=== PATIENT | male | born 1945 | race Caucasian/White ===

== ENCOUNTER 2020-04-22 09:06 | Outpatient (REF) | payer SELFPAY | END 2020-04-22 09:07 | disposition home or self-care (01) | LOC: HO.HAP 09:06 | PROVIDERS: Visit Provider Family Medicine | DX: Z13.89 Encounter for screening for other disorder (principal) ==

== ENCOUNTER 2020-05-02 08:26 | Outpatient (REF) | payer SELFPAY | END 2020-05-02 08:27 | disposition home or self-care (01) | LOC: HO.HAP 08:26 | PROVIDERS: Visit Provider Family Medicine | DX: Z13.89 Encounter for screening for other disorder (principal) ==

== ENCOUNTER 2021-05-13 08:47 | Outpatient (REF) | payer SELFPAY ==
--- NOTE | 2021-05-13 09:08 | MHC.AU.P13 ---
Hearing Instrument Problem-Right side Date of Visit: 05/13/21 Right Ear: Tissue Technician: Phonak Model: Audeo M70-R Serial Number: [id number] Repair Warranty: 11/11/2021 Battery Size: Rechargeable Dairy Equipment Installer: 2P Type of Dome: Medium vented dome Type of Wax Guard: Cerushield Dispensed By: [employer] Date of Fittin08/30/2018 Left Ear: Tissue Technician: Phonak Model: Audeo M70-R Serial Number: [id number] Repair Warranty: 11/11/2021 Battery Size: Rechargeable Dairy Equipment Installer: Size 2 P Type of Wax Guard: Cerushield Dispensed By: [employer] Date of Fittin08/30/2018 Follow-Up Summary: Patient brought in right hearing aid - not working. Cleaned, changed wax guard and medium vented dome - now amplifying clearly. Recommendations: Recommendations: Hearing instrument follow-up or maintenance as needed. Diagnosis Code(s): Primary Diagnosis: H90.3 Bilateral Sensorineural Hearing Loss Signature: Provider: WAYLON Freire-HIS
== END 2021-05-13 08:48 | disposition home or self-care (01) ==
LOC: HO.HAP 08:47
PROVIDERS: Visit Provider Family Medicine
DX: Z01.118 Encounter for examination of ears and hearing with other abnormal findings (principal); H90.3 Sensorineural hearing loss, bilateral
CPT/HCPCS: V5267

== ENCOUNTER 2022-03-17 13:44 | Outpatient (REF) | payer SELFPAY ==
--- NOTE | 2022-03-17 15:41 | MHC.AU.HFU ---
Hearing Instrument Follow-Up- Binaural Date of Visit: 03/17/22 Right Ear: Nolvia Castroo M70-R SN: [id number] Color: Sand Beige Repair Warranty: 11/11/2021 Loss and Damage Warranty: 11/11/2021 Battery Size: Rechargeable Cable Armorer: 2P Type of Mold: Medium vented dome Type of Wax Guard: Cerushield Dispensed By: [facility] Date of Fittin08/30/2018 Left Ear: Nolvia Castroo M70-R SN: [id number] Color: Sand Beige Repair Warranty: 11/11/2021 Loss and Damage Warranty: 11/11/2021 Battery Size: Rechargeable Cable Armorer: 2P Type of Mold: Medium vented dome Type of Wax Guard: Cerushield Dispensed By: [facility] Date of Fittin08/30/2018 Follow-Up Summary: Heriberto reported that his right hearing aid is not working. Cable Armorer plugged with wax and CeruShield out of position. Battery power also depleted. Cleaned both hearing aids. Vacuumed microphones and replaced domes and wax guards. Charged right hearing aid for about 15 minutes. A listening check demonstrated that both hearing aids are in good working order. Heriberto reported that he has no trouble changing the left wax guard but has difficulty removing the right wax guard. Could possibly be due to end of care asst being misshapen from multiple attempts at changing. He also reported a possible charging issue with the right hearing aid. Discussed option to send for [id number] repair and/or purchase new care asst. Heriberto reported he will try, as is, for now and will contact the clinic if problems persist. Recommendations: Hearing instrument maintenance in 6 months, or sooner if needed. Please contact our clinic with any questions or concerns. Patient will call if problems persist. Diagnosis Code(s): Primary Diagnosis: H90.3 Bilateral Sensorineural Hearing Loss Signature: Provider: Bj Alatorre, [facility]
== END 2022-03-17 13:45 | disposition home or self-care (01) ==
LOC: HO.HAP 13:44
PROVIDERS: Visit Provider Family Medicine
DX: Z46.1 Encounter for fitting and adjustment of hearing aid (principal)
CPT/HCPCS: 92593

== ENCOUNTER 2022-10-22 08:46 | Outpatient (REF) | payer MEDICARE, SELFPAY | END 2022-10-22 08:47 | disposition home or self-care (01) | LOC: HO.SH 08:46 | PROVIDERS: Visit Provider Family Medicine | DX: Z01.118 Encounter for examination of ears and hearing with other abnormal findings (principal); H90.3 Sensorineural hearing loss, bilateral | CPT/HCPCS: 92557 ==

== ENCOUNTER 2022-10-22 09:51 | Outpatient (REF) | payer SELFPAY ==
--- NOTE | 2022-10-22 13:14 | MHC.AU.MED ---
Medical Clearance for Hearing Instrumentation Date: 10/22/22 Patient Name: Heriberto Blank Date of : 1945 Primary Care Provider: Gemma Yo MD We have seen your patient on 10/22/22 and have determined that they are a candidate for amplification (See accompanying report). Specifically, they would benefit from: Hearing aid use in both ears There is a statute that addresses Medical Evaluation Requirements prior to fitting a patient with a hearing aid. According to [place] statute 265 CMR:6.03(1), (a) General. Except as provided in 265 CMR 6.03(1)(b), a plating and point assembly supervisor shall not sell a hearing aid unless the prospective user has presented to the plating and point assembly supervisor a written statement signed by a licensed physician that states that the patient's hearing loss has been medically evaluated and the patient may be considered a candidate for a hearing aid. The medical evaluation must have taken place within the preceding six months. Please note: Due to the [place] Statute referenced above, we cannot accept a signature other than that of a licensed physician. NURSING RESIDENT and PA signatures cannot be accepted. I am in agreement with the above recommendation. There is no medical contraindication for hearing instrumentation. Physician Signature Date Physician Name (Printed)
--- NOTE | 2022-10-22 13:29 | MHC.AU.HA1 ---
Hearing Aid Evaluation Date of Visit: 10/22/22 Historical Information:Description of Hearing: Moderate sloping to profound sensorineural hearing loss, bilaterally Current personal amplification information: Phonak Audeo M70-R fit in August 2018 Summary: Heriberto returned for an updated hearing test (see audio). He did not bring his current hearing aids to this appointment as they reportedly about two weeks ago. Discussed option to inspect and possibly repair hearing aids; however, Heriberto is interested in pursuing new hearing aids instead. He reportedly likes the style of his current hearing aids and would like to maintain bluetooth capabilities and rechargeability. However, his biggest concern is changing the wax guard with the CeruShield. He was never able to successfully use the disk for changing the wax guard. Discussed options including changing style of hearing aids, opting for a different can runner, or adding a c-shell ear mold with a CeruStop. Ja'sony CeruStop vs CeruShield. Recommended c-shell due to severity of loss anyways. Heriberto opted to stay with Phonak Audeo style hearing aids with a c-shell ear mold. Impressions were taken, bilaterally, without incident - Sent to [facility]. Hearing Aid Prescription: Based on the individual?s shared listening needs, communication environments, dexterity, desire for connectivity, and personal preferences, the following prescription for amplification has been made: Right ear: Make, Model, Color: Phonak Audeo L70-RT Color: Sand Beige Battery Size: Rechargeable Purse Seiner/Slim Tube: 2P Type of Earmold/Dome/CShell/SlimTip: c-shell Left ear: Left ear prescription to be same as Right Hearing Aid above: Make, Model, Color: Phonak Audeo L70-RT Color: Sand Beige Battery Size: Rechargeable Purse Seiner/Slim Tube: 2P Type of Earmold/Dome/CShell/SlimTip: c-shell Plan of Care: Patient wishes to purchase hearing aids as prescribed Action Taken/Action Needed: Earmold Impressions Taken. Medical Clearance to be requested from PCP/ENT. Hearing Instrument Fitting to be scheduled when materials arrive Primary Diagnosis: H90.3 Bilateral Sensorineural Hearing Loss Signature: Provider: Bj Alatorre, [facility]
== END 2022-10-22 09:52 | disposition home or self-care (01) ==
LOC: HO.HAP 09:51
PROVIDERS: Visit Provider Family Medicine
DX: Z46.1 Encounter for fitting and adjustment of hearing aid (principal); H90.3 Sensorineural hearing loss, bilateral
CPT/HCPCS: 92590

== ENCOUNTER 2022-11-18 12:03 | Outpatient (REF) | payer SELFPAY ==
--- NOTE | 2022-11-18 12:37 | MHC.AU.HA2 ---
Hearing Instrument Fitting- Adult- Binaural Date of Visit: 11/18/22 Hearing Instruments Dispensed: Right Ear: Make, Model, Color, Serial Number: Nolvia Ferrer L70-RT SN: [id number] Color: Sand Beige Meat Wrapper Repair Warranty: 01/26/2026 Meat Wrapper Loss and Damage Warranty: 01/26/2026 [facility] Service Plan: 11/18/2025 Battery Size: Rechargeable Crucible Packer/Slim Tube: 2P Earmold/Dome/CShell/SlimTip: C-shell SN: [id number] Des: 02/07/2023 Type of Wax Guard: Cerustop Left Ear: Salty, Model, Color, Serial Number: Nolvia Ferrer L70-RT SN: [id number] Color: Sand Beige Meat Wrapper Repair Warranty: 01/26/2026 Meat Wrapper Loss and Damage Warranty: 01/26/2026 [facility] Service Plan: 11/18/2025 Battery Size: Rechargeable Crucible Packer/Slim Tube: 2P Earmold/Dome/CShell/SlimTip: C-Shell SN: [id number] Des: 01/28/2023 Type of Wax Guard: Cerustop Accessories/Assistive Technology: Sql Server D[employer] SN: [id number] Summary of Fitting: Performed feedback advertising assistant manager and real ear measurements. Decreased to 90% gain level at Heriberto's request due to overall loudness. Otherwise, he reported sound quality comfortable and clear. C-shells comfortable with no feedback in office. Advised of warranty on ear molds if issues arise with fit and/or comfort. Reviewed care and use including rechargeability, cleaning ear molds, changing wax guards, volume control use, and manually turning on/off. Practiced insertion and removal. Paired to cell phone and confirmed successful connection in office via phone call. Heriberto reported the streaming of the phone call was a bit weak even after adjusting the volume on his phone and on his hearing aids. Will discuss further at follow up after having time to trial it more. Briefly discussed the Profista topher; however, Heriberto did not download it at this time. Heriberto reportedly has a TV Connector that he used with his old hearing aids. Called [employer] and confirmed it is the same TV Connector for his new hearing aids. Heriberto reported that he can pair the hearing aids to the TV Connector at home. Recommendations: A hearing instrument follow-up was scheduled. Diagnosis Code(s): Primary Diagnosis: H90.3 Bilateral Sensorineural Hearing Loss Signature: Provider: Bj Alatorre, [facility]
== END 2022-11-18 12:04 | disposition home or self-care (01) ==
LOC: HO.HAP 12:03
PROVIDERS: Visit Provider Family Medicine
DX: Z46.1 Encounter for fitting and adjustment of hearing aid (principal); H90.3 Sensorineural hearing loss, bilateral
CPT/HCPCS: 92700; V5261; V5264; V5299

== ENCOUNTER 2022-12-02 13:45 | Outpatient (REF) | payer SELFPAY ==
--- NOTE | 2022-12-03 09:11 | MHC.AU.HA3 ---
Hearing Instrument Follow-Up- Binaural Date of Visit: 12/02/22 Right Ear: Salty, Model, Color, Serial Number: Nolvia Ferrer L70-RT SN: [id number] Color: Sand Beige Needle Punch Machine Operator Helper Repair Warranty: 01/26/2026 Needle Punch Machine Operator Helper Loss and Damage Warranty: 01/26/2026 Service Plan: 11/18/2025 Battery Size: Rechargeable Production Editor/Slim Tube: 2P Earmold/Dome/CShell/SlimTip:C-shell SN: [id number] Des: 02/07/2023 Type of Wax Guard: Cerustop Dispensed By: Date of Fittin11/18/2022 Left Ear: Salty, Model, Color, Serial Number: Nolvia Ferrer L70-RT SN: [id number] Color: Sand Beige Needle Punch Machine Operator Helper Repair Warranty: 01/26/2026 Needle Punch Machine Operator Helper Loss and Damage Warranty: 01/26/2026 Service Plan: 11/18/2025 Battery Size: Rechargeable Production Editor/Slim Tube: 2P Earmold/Dome/CShell/SlimTip: C-Shell SN: [id number] Des: 01/28/2023 Type of Wax Guard: Cerustop Dispensed By: Date of Fittin11/18/2022 Follow-Up Summary: Heriberto reported that overall, he has noticed a significant benefit with his new hearing aids compared to his old hearing aids. He can hear the alarm system in his home as well as birds chirping outside - all sounds he never heard with his old hearing aids. However, Heriberto reported that every morning he turns down the volume on his hearing aids at least 5 clicks due to perceived loudness. Even with the decrease in volume, he is still noticing an improvement in his hearing. Decreased overall volume in [employer] software so Heriberto does not need to adjust the volume every morning. More comfortable sound quality in office but also discussed the balance between comfort and audibility. Heriberto reported that he has disconnected the bluetooth capabilities at this time, as the text notifications were too loud and it was more hassle than it was worth. He inquired about the Pixia topher for remote control use - discussed the topher and provided instructions to obtaining the topher user guide online. Heriberto may download the topher himself if he chooses to try it out. Otherwise, Heriberto's biggest concern was his right ear mold. It reportedly slips out of his ear with jaw movement or any type of activity (e.g., pickleball). He is nervous he may loose his hearing aid due to these retention issues. No concerns with the left ear mold. Impression taken of the right ear without incident to send to [facility] for remake. Recommendations: Patient will be contacted when materials have arrived. Diagnosis Code(s): Primary Diagnosis: H90.3 Bilateral Sensorineural Hearing Loss Signature: Provider: Bj Alatorre, CCC-A
== END 2022-12-02 13:46 | disposition home or self-care (01) ==
LOC: HO.HAP 13:45
PROVIDERS: Visit Provider Family Medicine
DX: Z13.89 Encounter for screening for other disorder (principal)

== ENCOUNTER 2022-12-24 14:41 | Outpatient (REF) | payer SELFPAY ==
--- NOTE | 2022-12-24 15:15 | MHC.AU.HA3 ---
Hearing Instrument Follow-Up- Binaural Date of Visit: 12/24/22 Right Ear: Make, Model, Color, Serial Number: Nolvia Ferrer L70-RT SN: [id number] Color: Sand Beige Toucher Up Repair Warranty: 01/26/2026 Toucher Up Loss and Damage Warranty: 01/26/2026 [facility] Service Plan: 11/18/2025 Battery Size: Rechargeable Analytics Analyst/Slim Tube: 2P Earmold/Dome/CShell/SlimTip:C-shell SN: [id number] Des: 02/07/2023 Type of Wax Guard: Cerustop Dispensed By: [facility] Date of Fittin11/18/2022 Left Ear: Make, Model, Color, Serial Number: Nolvia Ferrer L70-RT SN: [id number] Color: Sand Beige Toucher Up Repair Warranty: 01/26/2026 Toucher Up Loss and Damage Warranty: 01/26/2026 [facility] Service Plan: 11/18/2025 Battery Size: Rechargeable Analytics Analyst/Slim Tube: 2P Earmold/Dome/CShell/SlimTip: C-Shell SN: [id number] Des: 01/28/2023 Type of Wax Guard: Cerustop Dispensed By: [facility] Date of Fittin11/18/2022 Follow-Up Summary: Fit remade c-shell. Heriberto reported it was more comfortable in office; however, he will not know if it fits better until he has worn it while eating or participating in active events (e.g., pickleball). He has the old c-shell to keep as back up, if needed. Reran feedback correctional manager with new c-shell. Increased global gain to 95% as Heriberto reported that his thinks he is not hearing as well after the adjustments made at the last appointment (previously decreased overall gain for comfort). Decreased highest frequencies slightly due to sharpness of /s/ and /sh/ sound. Again discussed balance between comfort and audibility. He inquired about using a dome again; however, strongly recommended c-shell due to severity of loss. Heriberto will call in about one week to report on the fit of the new ear mold and the programming adjustments. Recommendations: Hearing instrument follow-up or maintenance as needed. Patient will call if problems persist. Diagnosis Code(s): Primary Diagnosis: H90.3 Bilateral Sensorineural Hearing Loss Signature: Provider: Bj Alatorre, [facility]
== END 2022-12-24 14:42 | disposition home or self-care (01) ==
LOC: HO.HAP 14:41
PROVIDERS: Visit Provider Family Medicine
DX: Z13.89 Encounter for screening for other disorder (principal)

== ENCOUNTER 2023-01-11 07:49 | Outpatient (REF) | payer SELFPAY ==
--- NOTE | 2023-01-11 11:44 | MHC.AU.HA3 ---
Hearing Instrument Follow-Up- Binaural Date of Visit: 01/11/23 Right Ear: Make, Model, Color, Serial Number: Nolvia Ferrer L70-RT SN: [id number] Color: Sand Beige Wrapper Opener Repair Warranty: 01/26/2026 Wrapper Opener Loss and Damage Warranty: 01/26/2026 [facility] Service Plan: 11/18/2025 Battery Size: Rechargeable Linux Systems Analyst/Slim Tube: 2P Earmold/Dome/CShell/SlimTip:C-shell SN: [id number] Des: 02/07/2023 Type of Wax Guard: Cerustop Dispensed By: [facility] Date of Fittin11/18/2022 Left Ear: Make, Model, Color, Serial Number: Nolvia Ferrer L70-RT SN: [id number] Color: Sand Beige Wrapper Opener Repair Warranty: 01/26/2026 Wrapper Opener Loss and Damage Warranty: 01/26/2026 [facility] Service Plan: 11/18/2025 Battery Size: Rechargeable Linux Systems Analyst/Slim Tube: 2P Earmold/Dome/CShell/SlimTip: C-Shell SN: [id number] Des: 01/28/2023 Type of Wax Guard: Cerustop Dispensed By: [facility] Date of Fittin11/18/2022 Follow-Up Summary: Heriberto reported that the right remade c-shell still falls out of his ear especially with jaw/head movement or any type of activity. After inspection, mold appears to fit well; however, wire may be too short, pulling mold out of ear. Impression taken of right ear without incident. Will reorder c-shell with size 3 wire and longer canal length. Sent impression to [employer]. Discussed option of adding skeleton or canal lock; however, Heriberto prefers the canal style mold. Will try again with longer wire; however, Heriberto knows if issues still persist, will need to discuss other retention options. Heriberto also reported some distortion of high frequencies sounds (e.g., he hears shwim for swim). Turned off SoundRecover. Explained may miss high frequency speech sounds but he will trial these settings for now. Recommendations: Patient will be contacted when materials have arrived. Diagnosis Code(s): Primary Diagnosis: H90.3 Bilateral Sensorineural Hearing Loss Signature: Provider: Bj Alatorre, [facility]
== END 2023-01-11 07:50 | disposition home or self-care (01) ==
LOC: HO.HAP 07:49
PROVIDERS: Visit Provider Family Medicine
DX: Z13.89 Encounter for screening for other disorder (principal)

== ENCOUNTER 2023-02-15 07:59 | Outpatient (REF) | payer SELFPAY ==
--- NOTE | 2023-02-15 08:20 | MHC.AU.HA3 ---
Hearing Instrument Follow-Up- Binaural Date of Visit: 02/15/23 Right Ear: Make, Model, Color, Serial Number: Nolvia Ferrer L70-RT SN: [id number] Color: Sand Beige Equipment Sterilizer Repair Warranty: 01/26/2026 Equipment Sterilizer Loss and Damage Warranty: 01/26/2026 [facility] Service Plan: 11/18/2025 Battery Size: Rechargeable Pressroom Worker/Slim Tube: 3P Earmold/Dome/CShell/SlimTip:C-shell SN: [id number] Des: 04/22/2023 Type of Wax Guard: Cerustop Dispensed By: [facility] Date of Fittin11/18/2022 Left Ear: Make, Model, Color, Serial Number: Nolvia Ferrer L70-RT SN: [id number] Color: Sand Beige Equipment Sterilizer Repair Warranty: 01/26/2026 Equipment Sterilizer Loss and Damage Warranty: 01/26/2026 [facility] Service Plan: 11/18/2025 Battery Size: Rechargeable Pressroom Worker/Slim Tube: 2P Earmold/Dome/CShell/SlimTip: C-Shell SN: [id number] Des: 01/28/2023 Type of Wax Guard: Cerustop Dispensed By: [facility] Date of Fittin11/18/2022 Follow-Up Summary: Fit remade right c-shell with longer playground monitor (length 3 vs previously length 2). Heriberto reported it felt comfortable in office; however, he will not know definitively until he has worn it for some time, especially while eating or doing an activity (e.g., pickleball). Ran feedback analyzer. Decreased overall volume slightly at Heriberto's request and increased high frequencies in right ear as Heriberto reportedly could not hear the CO2 low battery alert in his house in the right ear. Heriberto will call in about one week to report on the fit of his right c-shell. Recommendations: Hearing instrument follow-up or maintenance as needed. Please contact our clinic with any questions or concerns. Patient will call if problems persist. Diagnosis Code(s): Primary Diagnosis: H90.3 Bilateral Sensorineural Hearing Loss Signature: Provider: Bj Alatorre, [facility]
== END 2023-02-15 08:00 | disposition home or self-care (01) ==
LOC: HO.HAP 07:59
PROVIDERS: Visit Provider Family Medicine
DX: Z13.89 Encounter for screening for other disorder (principal)

== ENCOUNTER 2025-03-05 09:29 | Outpatient (REF) | payer SELFPAY | END 2025-03-05 09:30 | disposition home or self-care (01) | LOC: HO.HAP 09:29 | PROVIDERS: Visit Provider Family Medicine | DX: Z13.89 Encounter for screening for other disorder (principal) ==

== ENCOUNTER 2025-03-08 08:33 | Outpatient (REF) | payer SELFPAY ==
--- OUTSIDE RECORDS SUMMARY | 2025-03-08 08:37 | XMS_ITS | Clinical Summary ---
Author Organization LL [address] [place] [address] Address [address] [place] [address] Phone Care Team Providers Care Electronic News Gathering Camera Person Name Role Phone Physician, Pcp Unknown Primary Care Provider Flavia vailable Social History Tobacco Use Types Packs/Day Years Used Date Smoking Tobacco: Never Assessed Sex and Gender Information Value Date Recorded Sex Assigned at Not on file Legal Sex Male 2:41 PM EST Gender Identity Not on file Sexual Orientation Not on file Plan of Treatment Health Maintenance Due Date Last Done Comments DTaP,Tdap,and Td Vaccines (1 - Tdap) 1964 Pneumococcal Vaccine: 50+ Ye ars (1 of 1 - PCV) 1995 Zoster Vaccines (1 of 2) 1995 RSV Immunization Adult Patie nts (1 - 1-dose 75+ series) 2020 Depression Screening 04/18/2024 Cholesterol Screening (Lipid Panel) 05/25/2024 Falls Risk Assessment 05/25/2024 Hepatitis C Screening 05/25/2024 Medicare Annual Wellness Visit 05/25/2024 Social Influencers of Health Screening 05/25/2024 COVID-19 Vaccine (1 - 2024-2 6 season) 2024 Influenza Vaccine (#1) 2024 HIB Vaccines Aged Out No longer eligi ble based on patient's age to complete this topic HPV Vaccines Aged Out No longer eligi ble based on patient's age to complete this topic Hepatitis A Vaccines Aged Out No long er eligible based on patient's age to complete this topic Hepatitis B Vaccines Aged Out No long er eligible based on patient's age to complete this topic IPV Vaccines Aged Out No longer eligi ble based on patient's age to complete this topic MMR Vaccines Aged Out No longer eligi ble based on patient's age to complete this topic Meningococcal ACWY Vaccine Aged Out N o longer eligible based on patient's age to complete this topic Meningococcal B Vaccine Aged Out No l onger eligible based on patient's age to complete this topic RSV Immunization Patients Un paola 20 months Aged Out No longer eligible b ased on patient's age to complete this topic Varicella Vaccines Aged Out No longer eligible based on patient's age to complete this topic Insurance MEDICARE [facility] Care Teams Electronic News Gathering Camera Person Relationship Specialty Start Date End Date Physician, Pcp Unknown PCP - General 05/25/24
--- OUTSIDE RECORDS SUMMARY | 2025-03-08 08:37 | XMS_ITS | Clinical Summary ---
Author Organization [facility] Address [address] [place] [id number] Phone Care Team Providers Care Instructor Watch Assembly Name Role Phone Gemma Yo MD Primary Care Provider Social History Tobacco Use Types Packs/Day Years Used Date Smoking Tobacco: Never Assessed Education Answer Date Recorded Are you interested in more education? Not on perez e 08/13/2022 Are you concerned about learning? Not on file 08/13/2022 No 08/13/2022 No 08/13/2022 Digital Access Answer Date Recorded No 09/11/2022 No 09/11/2022 No 09/11/2022 Reliable internet access at home? Not on file 09/11/2022 Device with a working camera? Not on file Sex and Gender Information Value Date Recorded Sex Assigned at Not on file Legal Sex Male 3:57 PM EDT Gender Identity Not on file Sexual Orientation Not on file Plan of Treatment Health Maintenance Due Date Last Done Comments Adult Td,Tdap Booster 1945 LIPID PANEL 1945 DEPRESSION SCREENING 1957 SMOKING Hx and SMOKELESS TOBACCO SCREENING 1958 HEPATITIS C SCREENING 1963 ZOSTER VACCINES (1 of 2) 1995 RSV VACCINE (1 - 1-dose 75+ series) 2020 PNEUMOCOCCAL VACCINES (50+ years) (2 of 2 - PCV) 08/13/2021 08/13/2020 INFLUENZA VACCINE (#1) 2024 01/28/2015 COVID-19 VACCINE (3 - 2024-2 6 season) 2024 06/13/2020, 05/22/2020 HEPATITIS A VACCINES Aged Out No long er eligible based on patient's age to complete this topic HIB VACCINES Aged Out No longer eligi ble based on patient's age to complete this topic MENINGOCOCCAL VACCINES (ACWY) Aged Out No longer eligible based on patient's age to complete this topic MENINGOCOCCAL VACCINES (B) Aged Out N o longer eligible based on patient's age to complete this topic Medical Devices Not on file Insurance [place] PART A & [place] [id number] [facility] MEDEX SUPPLEMENT MEDICARE PART A & B [employer] CROSS MEDEX SUPPLEMENT MEDICARE PART A & B [employer] CROSS MEDEX SUPPLEMENT MEDICARE PART A & B [employer] MEDEX SUPPLEMENT MEDICARE PART A & B [employer] MEDEX SUPPLEMENT MEDICARE PART A & B [facility] MEDEX SUPPLEMENT MEDICARE PART A & B [employer] MEDEX SUPPLEMENT MEDICARE PART A & B [employer] CROSS MEDEX SUPPLEMENT MEDICARE PART A & B [employer] CROSS MEDEX SUPPLEMENT Care Teams Instructor Watch Assembly Relationship Specialty Start Date End Date Gemma Yo MD [address] [place] [phone] PCP - General Family Medicine 07/06/19 Additional Source Comments The information contained in this document represents components of the legal health record. It is not the complete legal health record.[facility]
--- OUTSIDE RECORDS SUMMARY | 2025-03-08 08:37 | XMS_ITS | Encounter Summary ---
Author Organization [facility] Address [address] [place] [address] Care Team Providers Care Office Administrative Assistant Name Role Phone Physician, Pcp Unknown Primary Care Provider Flavia vailable Encounter Details Date Type Department Care Team (Late st Contact Info) Description 05/25/[address] [facility] [address] [facility] [place] [address] Ayden Correa MD [address] [facility] [address] [place] [address] Personal history of malignant neoplasm of bladder Social History Tobacco Use Types Packs/Day Years Used Date Smoking Tobacco: Never Assessed Sex and Gender Information Value Date Recorded Sex Assigned at Not on file Legal Sex Male 2:41 PM EST Gender Identity Not on file Sexual Orientation Not on file documented as of this encounter Plan of Treatment Not on file documented as of this encounter Procedures Procedure Name Priority Date/Time Associated Diagnosis Comments AP OUTSIDE CONSULT Routine 05/22/2024 12 :00 AM EST Personal history of malignant neoplasm of bladder documented in this encounter Results * Anatomic pathology outside consult (05/22/2024 12:00 AM EST) Final Diagnosis A. Urine, Voided, ([id number]): Negative for high grade urothelial carcinoma. Results of UroVysion fluorescence in situ hybridization (FISH) testing: CEP3: Normal CEP7: Normal CEP17: Normal LSI 9p21: Normal Interpretation: Normal profile Controls stained appropriately. Note: The results are intended as a screening device and should be interpreted in association with other clinical and pathological findings. 06/05/2024 9:26 AM EST [facility] Clinical Information History of bladder neoplasm (malignant) Z85.51 Urine Cytology/FISH (now) 06/05/2024 9:26 AM [facility] Gross Description A. Urine, Voided, ([id number]): Received one ThinPrep slide for cytology and one ThinPrep slide for UroVysion FISH 06/05/2024 9:26 AM [facility] Disclaimer Unless otherwise specified, all tissue is 10% NB formalin fixed and paraffin embedded. Technical pathology services provided by [facility] at [address] [place] [address] [address], [place] [address] (CLIA #[id number]/Kamini Seth MD, Book Reviewer) 06/05/2024 9:26 AM [facility] Tissue Urine specimen from urethra / Unknown 05/22/2024 05/25/2024 2:47 PM EST us Ayden Correa MD LAB PATHOLOGY ORDERABLES Final Result [facility] [address] [place] [address], documented in this encounter Visit Diagnoses Diagnosis Personal history of malignant neoplasm of bladder documented in this encounter Care Teams Office Administrative Assistant Relationship Specialty Start Date End Date Physician, Pcp Unknown PCP - General 05/25/24 documented as of this encounter
--- OUTSIDE RECORDS SUMMARY | 2025-03-08 08:37 | XMS_ITS | Patient Health Record ---
Author Organization [facility] Address [address] [place] [id number] Care Team Providers Care Fitness Management Director Name Role Phone Rosas Avila MD Primary Care Provider Paulie Dixon Unavailable [phone] Allergies Allergen (clinical drug ingredient) Drug/Non Drug Allergy documented on EMR Reaction Allergy Type Onset Date Status Sulfa Unknown Drug Allergy Active Reason For Referral No Information Medications Medication SIG (Take, Route, Frequency, Duration) Notes Start Date End Date Status hydroCHLOROthiazide 25 MG Tablet 1 tablet in the morning Orally Once a day Active Omeprazole 20 MG Capsule Delayed Release 1 capsule Orally Once a day Active Aspir-81 81 MG Tablet Delaye d Release 1 tablet Orally Once a day Active NIFEdipine ER 90 MG Tablet Extended Release 24 Hour 1 tablet on an empty stomach Orally Once a day Active Allopurinol 100 MG Tablet 1 tablet Orall y Once a day Active Simvastatin 20 MG Tablet 1 tablet in the evening Orally Once a day Active Immunizations Vaccine Route Administration Date Status Comme nts Flu vaccine no Preserv 3 and > Unknown 03/01/2016 Admin istered Social History Tobacco Use: Social History Observation Description Date Details (start date - stop date) Former Smoker NA - NA Social History Drugs/Alcohol: Social Info Question Answer Notes Alcohol Screen Did you have a drink containing alcohol in the past year? Yes How often did you have a drink containing alcohol in the past year? 4 or more times a week (4 points) How many drinks did you have on a typical day when you were drinking in the past year? 3 or 4 drinks (1 point) How often did you have 6 or more drinks on one occasion in the past year? Never (0 point) Points 5 Interpretation Positive Tobacco Use: Social Info Question Answer Notes Tobacco Use/Smoking Patient is a former smoker How long has it been since you last smoked? > 10 years Additional Details Category Social Info Options Details Miscellaneous: Marital status: Occupation: Retired Section Notes: Nonsmoker; 3-4 beers QD Problems Problem Type SNOMED Code ICD Code Onset Dates Problem Status W/U Status Risk Notes Problem Screening for malignant neoplasm of colon (279582656) Encounter for screening for malignant neoplasm of colon (Z12.11) Active confirmed Problem Preprocedural examination (858377098436983) Preprocedural examination (Z01.818) Active confirmed Problem Long-term current use of aspirin (570867459481961) Aspirin long-term use (Z79.82) Active confirmed Problem Essential hypertension (72815783) Hypertension, unspecified type (I10) Active confirmed Plan Of Treatment Future Test Test Name Order Date COLONOSCOPY 01/05/2017 Insurance Providers Payer Name Payer Address Payer Phone Subscriber Number Group Number Insured Name Patient Relationship to Insured Coverage Start Date Coverage End Date MEDICARE OF [place] [address] [place] [address] [id number] SAV ROCHA Self - patient is the insured [employer] ATT[employer] CLAIMS [address] [place] [address] [id number] SAV ROCHA Self - patient is the insured Medical (General) History Medical History History ICD Code Denies OK,DM,CVA,Lung disease,renal dise ase Neg. colonoscopy in 06/2006 e xcept for a hyperplastic polyp and internal hemorrhoids HTN Gout Hyperlipidemia On omeprazole for previous episodes of d ysphagia--no hx of heartburn Surgical History Surgery Date(Month/Year) Rotator cuff tear repair-left Cataract-lens implants-right
--- OUTSIDE RECORDS SUMMARY | 2025-03-08 08:37 | XMS_ITS | Encounter Summary ---
Author Organization [facility] Address [address] [place] [address] Care Team Providers Care Marketing Segment Manager Name Role Phone Physician, Pcp Unknown Primary Care Provider Flavia vailable Encounter Details Date Type Department Care Team (Late st Contact Info) Description 12/18/2024 Lab Requisition [facility] [address] [facility] [place] [address] Ayden Correa MD [address] [facility] [address] [place] [address] Personal history of malignant neoplasm [...] Procedure Name Priority Date/Time Associated Diagnosis Comments NON-GYNECOLOGIC CYTOLOGY Routine 12/04/2024 12:00 AM EDT Personal history of malignant neoplasm of bladder documented in this encounter Results * Non-gynecologic cytology (12/04/2024 12:00 AM EDT) Final Diagnosis A. Urine, Voided, [id number]: Negative for high grade urothelial carcinoma. Results of UroVysion fluorescence in situ hybridization (FISH) testing: CEP3: Normal CEP7: Normal CEP17: Normal LSI 9p21: Normal Interpretation: Normal profile Controls stained appropriately. Note: The results are intended as a screening device and should be interpreted in association with other clinical and pathological findings. 01/01/2025 4:45 PM EDT [facility] Specimen A Adequacy Satisfactory for evaluation 01/01/2025 4:45 PM EDT [facility] Clinical Information History of bladder neoplasm (malignant) Z85.51 Urine Cytology/FISH (now) 01/01/2025 4:45 PM EDT [facility] Gross Description A. Urine, Voided, [id number]: Received one ThinPrep slide for cytology and one ThinPrep slide for UroVysion FISH 01/01/2025 4:45 PM EDT [facility] Disclaimer Unless otherwise specified, all tissue is 10% NB formalin fixed and paraffin embedded. Technical pathology services provided by [facility] at [address] [place] [address] [address], [place] [address] (CLIA #[id number]/Kamini Seth MD, Technology Program Manager) 01/01/2025 4:45 PM EDT [facility] Urine Urine specimen from urethra / Unknown 12/04/2024 12/18/2024 10:25 AM EDT us Ayden Correa MD LAB CYTOLOGY ORDERABLES Final Result [facility] [address] [place] [address], documented in this encounter Visit Diagnoses Diagnosis Personal history of malignant neoplasm of bladder documented in this encounter Care Teams Marketing Segment Manager Relationship Specialty Start Date End Date Physician, Pcp Unknown PCP - General 05/25/24 documented as of this encounter
--- OUTSIDE RECORDS SUMMARY | 2025-03-08 08:37 | XMS_ITS | Encounter Summary ---
Author Organization [facility] Address [address] [place] [address] Care Team Providers Care Maintenance Custodian Name Role Phone Physician, Pcp Unknown Primary Care Provider Flavia vailable Encounter Details Date Type Department Care Team (Late st Contact Info) Description 08/31/2024 Lab Requisition [facility] [address] [facility] [place] [address] Ayden Correa MD [address] [facility] [address] [place] [address] Personal history of malignant neoplasm of bladder; 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 Urine, Voided, ([id number]): Negative for high grade urothelial carcinoma. Results of UroVysion fluorescence in situ hybridization (FISH) testing: CEP3: Normal CEP7: Normal CEP17: Normal LSI 9p21: Normal Interpretation: Normal profile Controls stained appropriately. Note: The results are intended as a screening device and should be interpreted in association with other clinical and pathological findings. 09/14/2024 11:08 AM EDT [facility] Clinical Information History of bladder neoplasm (malignant) Z85.51 Malignant neoplasm of lateral wall of bladder C67.2 Urine Cytology/FISH (now) 09/14/2024 11:08 AM EDT [facility] Gross Description A. Urine, Voided, ([id number]): Received one ThinPrep slide for cytology and one ThinPrep slide for UroVysion FISH 09/14/2024 11:08 AM EDT [facility] Disclaimer Unless otherwise specified, all tissue is 10% NB formalin fixed and paraffin embedded. 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
== END 2025-03-08 08:34 | disposition home or self-care (01) ==
LOC: HO.HAP 08:33
PROVIDERS: Visit Provider Family Medicine
DX: Z13.89 Encounter for screening for other disorder (principal)